=== PATIENT | male | born 1950 | race Two or more races ===

== ENCOUNTER → 2019-05-28 | Emergency (ER) | payer MEDICAID ==
[~2019-05-28] VITALS: Ht 297.2 cm; Wt 86.6 kg
[2019-05-28 08:00] VITALS: BP 157/79
--- NOTE | 2019-05-28 08:24 | NUR ---
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
--- NOTE | 2019-05-28 10:10 | NUR ---
Patient discharged to home in stable condition. Written and verbal after care instructions given. Patient verbalizes understanding of instruction.
== END | disposition home or self-care (01) ==
LOC: ER 08:00
DX: S01.01XA Laceration without foreign body of scalp, initial encounter (principal); Z85.05 Personal history of malignant neoplasm of liver; W01.0XXA Fall on same level from slipping, tripping and stumbling without subsequent striking against object, initial encounter; Y93.89 Activity, other specified; Y92.89 Other specified places as the place of occurrence of the external cause; Y99.8 Other external cause status
CPT/HCPCS: 12001; 70450; 73030; 99284; A6403

== ENCOUNTER 2019-06-24 21:32 | Emergency (ER) | payer MEDICAID ==
[~2019-06-24] VITALS: Ht 170.2 cm; Wt 81.6 kg
[2019-06-24] MEDS ORDERED: IBUPROFEN 400 MG TABLET PO ONE (22:30)
[2019-06-24] MEDS ORDERED: IBUPROFEN 400 MG TABLET ONE (22:32)
--- NOTE | 2019-06-24 22:33 | NUR ---
RADIOLOGY AT BEDSIDE FOR XRAYS
--- NOTE | 2019-06-24 23:20 | NUR ---
Patient discharged to home in stable condition. Written and verbal after care instructions given. Patient verbalizes understanding of instruction. ambulatory with a steady gait noted. pt daughter at bedside to take pt home.
[2019-06-24 23:22] VITALS: BP 117/78
== END 2019-06-24 23:22 | disposition home or self-care (01) ==
LOC: ER 21:34
DX: S93.491A Sprain of other ligament of right ankle, initial encounter (principal); S43.492A Other sprain of left shoulder joint, initial encounter; Z85.05 Personal history of malignant neoplasm of liver; W01.0XXA Fall on same level from slipping, tripping and stumbling without subsequent striking against object, initial encounter; Y93.89 Activity, other specified; Y92.89 Other specified places as the place of occurrence of the external cause; Y99.8 Other external cause status
CPT/HCPCS: 73030-TC; 73610-TC

== ENCOUNTER 2019-08-22 10:49 | Emergency (ER) | payer MEDICAID ==
[~2019-08-22] VITALS: Ht 172.7 cm; Wt 85.3 kg
--- NOTE | 2019-08-22 11:30 | NUR ---
patient came in to the er c/o right ankle pain and swelling s/p tripped and buckled. On room air, breathing evenly and unlabored kept comfortable, will continue to monitor accordingly.
[2019-08-22] MEDS ORDERED: MORPHINE SULFATE INJ 2 MG/ML DISP.SYRIN ONE (11:41)
[2019-08-22 11:50] LABS: BASOPHILS # (AUTO) 0.1 /CMM (0.0-0.2); BASOPHILS % (AUTO) 1.7 % (0.0-2.0); EOSINOPHILS % (AUTO) 0.1 % (0.0-6.0); HEMATOCRIT 29 % (39-51); HEMOGLOBIN 9.8 g/dL (13.5-17.5); LYMPHOCYTES # (AUTO) 1.5 /CMM (0.8-4.8); LYMPHOCYTES % (AUTO) 30.1 % (20.0-44.0); MEAN CORPUSCULAR HGB CONC 33 g/dl (31.0-36.0); MEAN CORPUSCULAR VOLUME 97 fL (80-96); MONOCYTES # (AUTO) 0.7 /CMM (0.1-1.30); NEUTROPHILS # (AUTO) 2.6 /CMM (1.8-8.9); NEUTROPHILS % (AUTO) 53.1 % (43.0-81.0); PLATELET COUNT (AUTO) 144 /CMM (150-450); RED BLOOD CELL COUNT(AUTO) 3.03 MIL/uL (4.5-6.0)
[2019-08-22] MEDS: MORPHINE SULFATE INJ 2 MG/ML DISP.SYRIN IV ONE (11:55)
[2019-08-22 11:58] LABS: CALCIUM, SERUM 8.3 mg/dL (8.5-10.1); CREATININE 0.9 mg/dL (0.6-1.3); POTASSIUM 4.4 mmol/L (3.5-5.1)
[2019-08-22 12:03] LABS: ALBUMIN 2.5 g/dL (3.4-5.0); BILIRUBIN,DIRECT 0.6 mg/dL (0.0-0.2); BILIRUBIN,TOTAL 1.5 mg/dL (0.2-1.0); TOTAL PROTEIN, SERUM 8.8 g/dL (6.4-8.2)
[2019-08-22 13:34] VITALS: BP 144/61
--- NOTE | 2019-08-22 13:34 | NUR ---
Patient discharged to home in stable condition. Written and verbal after care instructions given. Patient verbalizes understanding of instruction.IV removed. Catheter intact and site benign. Pressure and 4x4 applied to site. No bleeding noted.
== END 2019-08-22 13:34 | disposition home or self-care (01) ==
LOC: ER 10:49
DX: S93.491A Sprain of other ligament of right ankle, initial encounter (principal); Z85.05 Personal history of malignant neoplasm of liver; W01.0XXA Fall on same level from slipping, tripping and stumbling without subsequent striking against object, initial encounter; Y93.89 Activity, other specified; Y92.89 Other specified places as the place of occurrence of the external cause; Y99.8 Other external cause status
CPT/HCPCS: 36415; 73610; 80048; 80076; 85025; 85730; 96374; 99284; J2270

== ENCOUNTER 2019-09-14 16:48 | Inpatient (IN) | payer MEDICAID ==
[~2019-09-14] VITALS: Ht 170.2 cm; Wt 82.1 kg
--- NOTE | 2019-09-14 17:28 | NUR ---
PT BIB FAMILY TO ED BED 10 C/O RLQ ABDOMINAL PAIN W/ NAUSEA SINCE YESTERDAY. DENIES VOMITING PT STATES PAIN IS WORST AFTER LUNCH. PLACED ON MONITOR. VSS. AWAITING MD MOSCOSO.
[2019-09-14] MEDS ORDERED: ONDANSETRON HCL/PF 4 MG/2 ML VIAL IVP ONE (17:30)
[2019-09-14] MEDS ORDERED: MORPHINE SULFATE INJ 2 MG/ML DISP.SYRIN IV ONE ×3 (17:30→20:00)
--- NOTE | 2019-09-14 17:30 | NUR ---
DR HUANG AT BEDSIDE FOR EVAL.
--- NOTE | 2019-09-14 17:43 | NUR ---
IV LINE STARTED BLOOD DRAWN AND SENT TO LAB.
[2019-09-14] MEDS ORDERED: ONDANSETRON HCL/PF 4 MG/2 ML VIAL ONE (17:45)
[2019-09-14] MEDS ORDERED: MORPHINE SULFATE INJ 4 MG/ML DISP.SYRIN ONE (17:45)
[2019-09-14 17:48] LABS: BASOPHILS % (AUTO) 1.1 % (0.0-2.0); EOSINOPHILS % (AUTO) 1.4 % (0.0-6.0); HEMATOCRIT 26 % (39-51); HEMOGLOBIN 8.7 g/dL (13.5-17.5); LYMPHOCYTES # (AUTO) 1.8 /CMM (0.8-4.8); LYMPHOCYTES % (AUTO) 56.3 % (20.0-44.0); MEAN CORPUSCULAR HGB CONC 34 g/dl (31.0-36.0); MEAN CORPUSCULAR VOLUME 96 fL (80-96); MONOCYTES # (AUTO) 0.4 /CMM (0.1-1.30); MONOCYTES % (AUTO) 11.7 % (2.0-12.0); NEUTROPHILS # (AUTO) 0.9 /CMM (1.8-8.9); NEUTROPHILS % (AUTO) 29.5 % (43.0-81.0); PLATELET COUNT (AUTO) 267 /CMM (150-450); WHITE BLOOD COUNT (AUTO) 3.1 K/uL (4.3-11.0)
[2019-09-14 17:58] LABS: CALCIUM, SERUM 8.3 mg/dL (8.5-10.1); CARBON DIOXIDE 27 mmol/L (21-32); CHLORIDE 105 mmol/L (98-107); CREATININE 0.8 mg/dL (0.6-1.3); GLUCOSE 82 mg/dL (74-106); POTASSIUM 4.3 mmol/L (3.5-5.1); SODIUM SERUM 137 mmol/L (136-145); UREA NITROGEN, BLOOD 11 mg/dL (7-18)
[2019-09-14 18:04] LABS: ALANINE AMINOTRANSFERASE 29 U/L (12-78); ALKALINE PHOSPHATASE 508 U/L (46-116); ASPARTATE AMINOTRANSFERASE 63 U/L (15-37); BILIRUBIN,DIRECT 0.5 mg/dL (0.0-0.2); BILIRUBIN,TOTAL 0.9 mg/dL (0.2-1.0); LIPASE 151 U/L (73-393); TOTAL PROTEIN, SERUM 9.2 g/dL (6.4-8.2)
--- NOTE | 2019-09-14 18:09 | NUR ---
PT TO RADIOLOGY FOR ABDOMINAL CT SCAN VIA [facility].
[2019-09-14] MEDS ORDERED: IV NS 0.9% 250 ML IV ONE (18:17)
[2019-09-14] MEDS ORDERED: CT SWABBABLE VALVE TRANS SET 1 EA INFUS.SET MC ONE (18:17)
[2019-09-14] MEDS ORDERED: IOHEXOL-300 100 ML VIAL IV ONE (18:17)
[2019-09-14 18:32] LABS: APPEARANCE,URINE Clear (CLEAR); BILIRUBIN,URINE Negative (NEGATIVE); BLOOD, URINE Negative Ery/uL (NEGATIVE); COLOR,URINE Yellow (YELLOW); KETONES,URINE Negative (NEGATIVE); LEUKOCYTE ESTERASE ,URINE Negative (NEGATIVE); NITRITE, URINE Negative (NEGATIVE); PH,URINE 8.5 (5.0-8.0); PROTEIN,URINE Negative (NEGATIVE); UGLUCOSE Negative (NEGATIVE)
[2019-09-14 18:50] LABS: BACTERIA,URINE Few /HPF (None Seen); RBC,URINE 0-2 /HPF (0-2); SQUAMOUS EPITHELIAL CELL,UR Few /HPF (None Seen); WBC,URINE 0-2 /HPF (0-3)
[2019-09-14] MEDS ORDERED: MORPHINE SULFATE INJ 2 MG/ML DISP.SYRIN ONE ×2 (19:08→20:23)
--- NOTE | 2019-09-14 19:17 | NUR ---
REPORT GIVEN TO LAURA MCCLURE FOR INDERJIT.
--- NOTE | 2019-09-14 19:48 | NUR ---
CALLED [facility]. RADIATOR MECHANIC WAS PAGED
[2019-09-14] MEDS ORDERED: IV NS 0.9% 1,000 ML BAG IV ONE (20:00)
[2019-09-14] MEDS ORDERED: PIPERACILLIN /TAZOBACTAM 3.375 G in IV D5W 50 ML IV ONE (20:00)
[2019-09-14] MEDS ORDERED: PIPERACILLIN /TAZOBACTAM 3.375 G VIAL IV ONE (20:23)
--- NOTE | 2019-09-14 21:20 | NUR ---
REPORT GIVEN TO KAMI JURADO FOR INDERJIT.
--- NOTE | 2019-09-14 21:35 | NUR ---
MS/RN NEW ADMISSION RN NOTES RECEIVED PATIENT ON A GURNEY FROM ER ACCOMPANIED BY SON. PATIENT IS ALERT, ORIENTED, ESTONIAN SPEAKING BUT ABLE TO UNDERSTAND AND SPEAK WOLOF, RESPIRATIONS EVEN AND UNLABORED, SKIN WARM TO TOUCH, WITH PAIN IN ABDOMEN, DX OF COLLITIS AND PARTIAL OBSTRUCTION WITH ADMITTING MD ARELLANO. ROOM ORIENTATION PROVIDED, BELONGINGS CHECK, MEDICATION HOME WAS ASKED AND REPORTED NO MEDICATION BEEN TAKING AT THIS TIME EXCEPT TYLENOL REPORTED. BED LOCKED, ABLE TO AMBULATE WITH WEAKNESS AND SWOLLEN ON RIGHT FOOT. USES WALKER AND FOOT BOOT. SKIN CHECK, OBSERVE SURGICAL INCISSION IN MID ABDOMEN WITH DRESSING. WILL CONTINUE TO MONITOR AND PROVDE CARE.
[2019-09-14 21:36] VITALS: BP 146/83
--- NOTE | 2019-09-14 21:36 | NUR ---
PT TRANSPORTED TO UNIT ON [place] WITH EMT AT BEDSIDE. PT STABLE FOR TRANSPORT.
[2019-09-14] MEDS ORDERED: Z GUARD REMEDY 2 OZ OINT TP PRN (22:00)
[2019-09-14] MEDS ORDERED: ACETAMINOPHEN 325 MG TABLET PO PRN (22:00)
[2019-09-14] MEDS ORDERED: MAGNESIUM HYDROXIDE 30 ML UDC PO PRN (22:00)
[2019-09-14] MEDS ORDERED: ZOLPIDEM TARTRATE 5 MG TABLET PO PRN (22:00)
[2019-09-14] MEDS ORDERED: MAG HYDROX/AL HYDROX/SIMETH 30 ML UDC PO PRN (22:00)
[2019-09-14] MEDS ORDERED: HYDROCODONE/APAP 5/325MG 1 EACH TABLET PO PRN (22:00)
[2019-09-14] MEDS: MORPHINE SULFATE INJ 4 MG/ML DISP.SYRIN IV PRN (22:48)
--- NOTE | 2019-09-14 22:49 | NUR ---
MS/RN NOTES MORPHINE 4 MG/1ML REQUESTED BY PATIENT FOR SEVERE PAIN. BLOOD PRESSURE CHECK SBP ABOVE 140. WILL MONITOR FOR RELIEF.
[2019-09-14] MEDS: IV D5/0.45 NACL 1,000 ML IV PRN (22:57)
[2019-09-14] MEDS: ENOXAPARIN SODIUM 40 MG/0.4 ML DISP.SYRIN SQ SCH (23:23)
[2019-09-15] MEDS ORDERED: PIPERACILLIN /TAZOBACTAM 3.375 G VIAL IV ONE (02:26)
[2019-09-15] MEDS ORDERED: ZOSYN IVPB 3.375 G in IV D5W 50ml IV ONE (03:00)
[2019-09-15] MEDS: MORPHINE SULFATE INJ 4 MG/ML DISP.SYRIN IV PRN ×4 (06:22→22:36)
[2019-09-15 06:42] LABS: BASOPHILS % (AUTO) 0.8 % (0.0-2.0); EOSINOPHILS % (AUTO) 2.4 % (0.0-6.0); HEMATOCRIT 27 % (39-51); HEMOGLOBIN 8.8 g/dL (13.5-17.5); LYMPHOCYTES # (AUTO) 1.4 /CMM (0.8-4.8); LYMPHOCYTES % (AUTO) 54.8 % (20.0-44.0); MEAN CORPUSCULAR HGB CONC 33 g/dl (31.0-36.0); MEAN CORPUSCULAR VOLUME 96 fL (80-96); MONOCYTES # (AUTO) 0.3 /CMM (0.1-1.30); MONOCYTES % (AUTO) 11.9 % (2.0-12.0); NEUTROPHILS # (AUTO) 0.8 /CMM (1.8-8.9); NEUTROPHILS % (AUTO) 30.1 % (43.0-81.0); PLATELET COUNT (AUTO) 248 /CMM (150-450); RED BLOOD CELL COUNT(AUTO) 2.76 MIL/uL (4.5-6.0); WHITE BLOOD COUNT (AUTO) 2.5 K/uL (4.3-11.0)
--- NOTE | 2019-09-15 07:00 | NUR ---
MS/RN CLOSING NOTES ENDORSED TO AM RN FOR INDERJIT
[2019-09-15 07:19] LABS: CALCIUM, SERUM 7.7 mg/dL (8.5-10.1); CREATININE 0.7 mg/dL (0.6-1.3); POTASSIUM 3.5 mmol/L (3.5-5.1)
--- NOTE | 2019-09-15 07:50 | NUR ---
MS RN OPENING NOTES Received Patient awake and resting in bed. A/O x 4. Patient in stable condition. Breathing even and unlabored on room air with no respiratory distress. Denies pain. No signs and symptoms of pain. 20g PIV on RAC clean, intact, patent and flushing well with D51/2NS infusing at 125ml/hr. NPO precautions in place. Safety precautions in place. Bed locked and set to lowest position with side rails x 2 up. All needs rendered at this time. Call light within reach. Will continue to monitor.
[2019-09-15 08:00] VITALS: BP 126/73
[2019-09-15] MEDS: PANTOPRAZOLE 40 MG VIAL IV SCH (08:32)
[2019-09-15] MEDS: PIPERACILLIN /TAZOBACTAM 3.375 G in IV D5W 100 ML IV SCH ×2 (12:03→20:48)
--- NOTE | 2019-09-15 12:26 | NUR ---
MS RN NOTES Obtained consent for "XRay Small Bowel Follow Through" at this time. Explained risks and benefits of procedure. Patient agreed. Consent placed in chart. Patient in stable condition. Will continue to monitor.
--- NOTE | 2019-09-15 13:04 | NUR ---
MS RN NOTES Inserted 22g PIV on Left Hand clean, intact, patent and flushing well. Patient tolerated well. Patient in stable condition. Will continue to monitor.
[2019-09-15 14:14] LABS: THYROID STIMULATING HORMONE 3.205 uIU/mL (0.358-3.74)
[2019-09-15] MEDS ORDERED: IOHEXOL-350 100 ML VIAL IV ONE (14:26)
[2019-09-15] MEDS ORDERED: IV NS 0.9% 250 ML IV ONE (14:26)
[2019-09-15] MEDS ORDERED: CT SWABBABLE VALVE TRANS SET 1 EA INFUS.SET MC ONE (14:26)
--- NOTE | 2019-09-15 14:51 | NUR ---
MS RN NOTES Patient taken to radiology at this time. Patient in stable condition.
--- NOTE | 2019-09-15 15:43 | NUR ---
MS RN NOTES Patient returned from radiology at this time. Patient in stable condition. Will continue to monitor.
[2019-09-15] MEDS ORDERED: DIATR MEGLU/DIATRIZOATE SODIUM 120 ML BOTTLE (GASTROGRAPHIN) ONE (15:50)
[2019-09-15 15:56] VITALS: BP 139/79
[2019-09-15] MEDS: ACETYLCYSTEINE 10% 3,000 MG/30 ML VIAL PO SCH ×2 (16:41→21:00)
--- NOTE | 2019-09-15 18:54 | NUR ---
MS RN CLOSING NOTES Patient awake and resting in bed. A/O x 4. Patient in stable condition. Breathing even and unlabored on room air with no respiratory distress. Patient stated improved pain management. Administered Morphine 4mg IVP at 1745. 20g PIV on RAC clean, intact, patent and flushing well. 22g PIV on left hand clean, intact, patent and flushing well with D51/2NS infusing at 125ml/hr. Safety precautions in place. Bed locked and set to lowest position with side rails x 2 up. All needs rendered at this time. Family at bedside. Call light within reach. Will endorse plan of care to oncoming shift.
--- NOTE | 2019-09-15 18:55 | NUR ---
MS RN NOTES Obtained consent for "Computed Tomography of Abdomen with Contrast" at this time. Explained risks and benefits. Patient agreed. Patient in stable condition. Family at bedside.
--- NOTE | 2019-09-15 19:54 | NUR ---
MS RN NOTES PATIENT RECEIVED IN BED RESTING, LAYING COMFORTABLY WITH FAMILY AT BEDSIDE. ALERT AND ORIENTED X 4. PATIENT ON ROOM AIR WITH NO RESPIRATORY DISTRESS PRESENT, WITH EVEN NON-LABORED BREATHING. PATIENT SKIN CLEAN AND DRY. ABDOMINAL LESION INTACT WITH NO SIGNS OF DRAINAGE. IV ACCESS IN PLACE, INTACT, AND PATENT RUNNING 125mL/hr, of D5 1/2 NS. PATIENT COMPLAINS OF RIGHT ABDOMINAL PAIN, PROVIDED COMFORT MEASURES TO PATIENT, AND GAVE PATIENT WARM BLANKET. URINAL AT BEDSIDE WITH CLEAR, YELLOW URINE OUTPUT. SAFETY PRECAUTIONS IN PLACE WITH BED LOCKED, BED ALARM ON, BILATERAL SIDE RAILS UP, BED IN THE LOWEST POSITION, AND CALL LIGHT WITHIN EASY REACH OF PATIENT. WILL CONTINUE TO MONITOR.
[2019-09-15 20:00] VITALS: BP 131/76
[2019-09-15] MEDS: ENOXAPARIN SODIUM 40 MG/0.4 ML DISP.SYRIN SQ SCH (21:19)
--- NOTE | 2019-09-15 22:36 | NUR ---
MS RN NOTES PATIENT STATES OF HAVING ABDOMINAL PAIN. PATIENT STATES PAIN LEVEL OF 9/10. ADMINISTERED MORPHINE IV 4mg/mL. VITAL SIGNS WNL, BP: 131/76 PULSE:62, RESPIRATORY RATE:18 AND O2:95%. WILL CONTINUE TO MONITOR PATIENT AND REASSESS PAIN LEVEL.
[2019-09-15] MEDS: ONDANSETRON HCL/PF 4 MG/2 ML VIAL IVP PRN (22:44)
[2019-09-16] MEDS: MORPHINE SULFATE INJ 4 MG/ML DISP.SYRIN IV PRN ×3 (03:29→21:52)
[2019-09-16] MEDS: PIPERACILLIN /TAZOBACTAM 3.375 G in IV D5W 100 ML IV SCH ×3 (04:25→20:45)
[2019-09-16] MEDS: ONDANSETRON HCL/PF 4 MG/2 ML VIAL IVP PRN (05:10)
--- NOTE | 2019-09-16 06:00 | NUR ---
MS RN NOTES PATIENT IN BED RESTING. ALERT AND ORIENTED X 4. PATIENT ON ROOM AIR, WITH NO RESPIRATORY DISTRESS PRESENT, AND WITH EVEN NON-LABORED BREATHING. PATIENT SKIN KEPT CLEAN AND DRY. ABDOMINAL DRESSING CHANGED, NO DRAINAGE PRESENT ON SITE. IV ACCESS INTACT AND PATENT, RIGHT AC, 20 GAUGE AND LEFT HAND 22 GAUGE. PATIENT PRESENTS NO SIGNS OF NAUSEA/VOMITING AT THIS TIME. PATIENT PRESENTS NO PAIN OR DISCOMFORT AT THIS TIME, PROVIDED COMFORT MEASURES TO PATIENT. SAFETY PRECAUTIONS IN PLACE WITH BED IN THE LOWEST POSITION, BED LOCKED, BED ALARM ON, BILATERAL SIDE RAILS UP, AND CALL LIGHT WITHIN EASY REACH. WILL ENDORSE INDERJIT TO UPCOMING AM NURSE.
--- NOTE | 2019-09-16 07:32 | NUR ---
MS RN OPENING NOTES RECEIVED PATIENT IN BED, A/O X4. PATIENT ON ROOM AIR BREATHING EVENLY WITH NO RESPIRATORY DISTRESS AT THIS TIME. RAC GAUGE # 20 SL PRESENT AND INTACT. L HAND GAUGE # 22 PRESENT AND INFUSING D5 1/2 NS AT THIS TIME. SAFETY PRECAUTIONS IN PLACE: BED IN LOW POSITION AND LOCKED, RAILS UP X2, CALL LIGHT WITHIN REACH. WILL CONTINUE TO MONITOR PATIENT.
[2019-09-16 08:00] VITALS: BP 114/70
[2019-09-16 08:11] LABS: IMMUNOGLOBULIN A, SERUM 1580 mg/dL (61-437); IMMUNOGLOBULIN G, SERUM 4118 mg/dL (700-1600); IMMUNOGLOBULIN M, SERUM 158 mg/dL (20-172)
[2019-09-16] MEDS: PANTOPRAZOLE 40 MG VIAL IV SCH (08:23)
[2019-09-16] MEDS: ACETYLCYSTEINE 10% 3,000 MG/30 ML VIAL PO SCH ×2 (11:39→20:46)
--- NOTE | 2019-09-16 15:33 | NUR ---
MS RN NOTES PATIENT DEVELOPED SEVERE ABDOMINAL PAIN (03/03). PATIENT ASKED FOR PAIN MEDICATION. PRN MORPHINE ADMINISTERED. WILL CONTINUE TO MONITOR PATIENT.
[2019-09-16] MEDS: IV D5/0.45 NACL 1,000 ML IV PRN (16:38)
--- NOTE | 2019-09-16 18:47 | NUR ---
MS RN CLOSING NOTES PATIENT IN BED, AWAKE, A/O X4. PATIENT ON ROOM AIR BREATHING EVENLY WITH NO RESPIRATORY DISTRESS THROUGHOUT THE DAY. RAC GAUGE # 20 SL PRESENT AND INTACT. L HAND GAUGE # 22 PRESENT AND INFUSING D5 1/2 NS AT 125 MLS/HR. ALL NEEDS ATTENDED TOO DURING THE DAY. SAFETY PRECAUTIONS IN PLACE: BED IN LOW POSITION AND LOCKED, RAILS UP X2, CALL LIGHT WITHIN REACH. WILL ENDORSE TO CONTROL CLERK HEAD NURSE.
--- NOTE | 2019-09-16 19:37 | NUR ---
MS RN NOTES PATIENT RECEIVED IN BED, RESTING AND LAYING COMFORTABLY. PATIENT ALERT AND ORIENTED X 4. ON ROOM AIR, WITH NO SIGNS OF RESPIRATORY DISTRESS PRESENT, NO SIGNS OF SOB, AND WITH EVEN NON-LABORED BREATHING. PATIENT SKIN DRY AND INTACT, DRESSING ON ABDOMEN CLEAN AND DRY, WITH NO SIGNS OF DRAINAGE. IV ACCESS IN PLACE, INTACT AND PATENT; RAC SL 20 GAUGE, L HAND 22 GAUGE RUNNING D5 1/2 NS, AT 125 ml/hr. PATIENT PRESENTS NO SIGNS OF DISCOMFORT OR PAIN, PROVIDED COMFORT MEASURES TO PATIENT. RIGHT FOOT BRACE/BOOT AT BEDSIDE. SAFETY PRECAUTIONS IN PLACE WITH BED IN THE LOWEST POSITION, BED LOCKED, BED ALARM ON, BILATERAL SIDE RAILS UP, AND CALL LIGHT WITHIN EASY REACH. WILL CONTINUE TO MONITOR PATIENT.
[2019-09-16 20:00] VITALS: BP 112/64
[2019-09-16] MEDS: ENOXAPARIN SODIUM 40 MG/0.4 ML DISP.SYRIN SQ SCH (21:48)
--- NOTE | 2019-09-16 21:52 | NUR ---
MS RN NOTES PATIENT COMPLAINS OF RIGHT ABDOMINAL PAIN, ON PAIN SCALE PATIENT STATES PAIN LEVEL OF 9/10. VITAL SIGNS ARE WNL, BP:112/64 PULSE:62 RESPIRATORY RATE:18. MORPHINE 4mg/1ml given at 2152. WILL REASSESS PATIENT AND CONTINUE TO MONITOR PATIENT.
[2019-09-17] MEDS: PIPERACILLIN /TAZOBACTAM 3.375 G in IV D5W 100 ML IV SCH ×3 (04:40→20:41)
[2019-09-17] MEDS: IV D5/0.45 NACL 1,000 ML IV PRN ×2 (04:52→20:39)
--- NOTE | 2019-09-17 06:20 | NUR ---
MS RN NOTES PATIENT IN BED SLEEPING, EASILY AWAKEN BY NAME AND LIGHT TOUCH, ALERT AND ORIENTED X 4. PATIENT ON ROOM AIR NO SIGNS OF RESPIRATORY DISTRESS PRESENT, NO SIGNS OF SOB, AND WITH EVEN NON-LABORED BREATHING. PATIENT SKIN KEPT CLEAN AND DRY. ABDOMINAL SITE KEPT CLEAN AND DRY WITH NO DRAINAGE PRESENT. NO NEW SKIN BREAKDOWN PRESENT. IV ACCESS INTACT, PATENT AND IN PLACE WITH NO S/S OF INFILTRATION. ALL PATIENT'S NEEDS MET AND PROVIDED COMFORT MEASURES TO PATIENT. SAFETY PRECAUTIONS IN PLACE WITH BED IN THE LOWEST POSITION, BILATERAL SIDE RAILS UP, BED LOCKED, AND CALL LIGHT WITHIN EASY REACH, WILL ENDORSE INDERJIT TO UPCOMING AM NURSE.
--- NOTE | 2019-09-17 07:17 | NUR ---
MS RN OPENING NOTES RECEIVED PATIENT IN BED, AWAKE, A/O X4. PATIENT ON ROOM AIR BREATHING EVENLY WITH NO RESPIRATORY DISTRESS AT THIS TIME. PATIENTS DENIES PAIN AT THE MOMENT. RAC GAUGE # 20 SL PRESENT AND INTACT AND FLUSHING WELL. L HAND GAUGE # 22 PRESENT AND INFUSING D5 1/2 NS AT THIS TIME. SAFETY PRECAUTIONS IN PLACE: BED IN LOW POSITION AND LOCKED, RAILS UP X2, CALL LIGHT WITHIN REACH. WILL CONTINUE TO MONITOR PATIENT.
[2019-09-17 07:26] LABS: BASOPHILS % (AUTO) 0.7 % (0.0-2.0); HEMATOCRIT 25 % (39-51); HEMOGLOBIN 8.2 g/dL (13.5-17.5); LYMPHOCYTES # (AUTO) 1.3 /CMM (0.8-4.8); LYMPHOCYTES % (AUTO) 50.6 % (20.0-44.0); MEAN CORPUSCULAR HGB CONC 33 g/dl (31.0-36.0); MEAN CORPUSCULAR VOLUME 95 fL (80-96); MONOCYTES # (AUTO) 0.3 /CMM (0.1-1.30); MONOCYTES % (AUTO) 12.3 % (2.0-12.0); NEUTROPHILS # (AUTO) 0.9 /CMM (1.8-8.9); NEUTROPHILS % (AUTO) 34.4 % (43.0-81.0); PLATELET COUNT (AUTO) 224 /CMM (150-450); WHITE BLOOD COUNT (AUTO) 2.5 K/uL (4.3-11.0)
[2019-09-17 08:00] VITALS: BP 101/58
[2019-09-17 08:07] LABS: CALCIUM, SERUM 7.6 mg/dL (8.5-10.1); CREATININE 0.9 mg/dL (0.6-1.3); MAGNESIUM 2.1 mg/dL (1.8-2.4); PHOSPHORUS 2.7 mg/dL (2.5-4.9); POTASSIUM 3.3 mmol/L (3.5-5.1)
[2019-09-17] MEDS: PANTOPRAZOLE 40 MG VIAL IV SCH (08:08)
[2019-09-17] MEDS: FERROUS SULFATE (325 MG) 325 MG/TAB TABLET PO SCH ×2 (08:08→16:38)
[2019-09-17] MEDS ORDERED: POTASSIUM CHLORIDE 20 MEQ POWDER PACKET NG SCH (10:30)
[2019-09-17 11:11] LABS: *SPE A/G RATIO 0.3 (0.7-1.7); *SPE ALBUMIN 2.2 g/dL (2.9-4.4); *SPE ALPHA-1-GLOBULIN 0.3 g/dL (0.0-0.4); *SPE ALPHA-2-GLOBULIN 0.8 g/dL (0.4-1.0); *SPE BETA GLOBULIN 1.8 g/dL (0.7-1.3); *SPE GLOBULIN, TOTAL 6.4 g/dL (2.2-3.9); *SPE M-SPIKE Not Observed g/dL (Not Observed); *SPEGAMMA GLOBULIN 3.5 g/dL (0.4-1.8)
[2019-09-17 12:24] LABS: OCCULT BLOOD STOOL NEGATIVE (NEGATIVE)
[2019-09-17] MEDS: MORPHINE SULFATE INJ 4 MG/ML DISP.SYRIN IV PRN ×3 (15:02→23:33)
[2019-09-17 16:00] VITALS: BP 148/89
--- NOTE | 2019-09-17 18:41 | NUR ---
MS RN CLOSING NOTES PATIENT IN BED, AWAKE, A/O X4. FAMILY AT THE BEDSIDE. PATIENT ON ROOM AIR BREATHING EVENLY WITH NO RESPIRATORY DISTRESS AT THIS TIME. PATIENTS DENIES PAIN AT THE MOMENT. RAC GAUGE # 20 SL PRESENT AND INTACT AND FLUSHING WELL. L HAND GAUGE # 22 PRESENT AND INFUSING D5 1/2 NS AT 125 MLS/HR. ALL NEEDS ATTENDED TO THROUGHOUT THE DAY. SAFETY PRECAUTIONS IN PLACE: BED IN LOW POSITION AND LOCKED, RAILS UP X2, CALL LIGHT WITHIN REACH. WILL ENDORSE TO REHABILITATION LIAISON NURSE.
--- NOTE | 2019-09-17 19:35 | NUR ---
MSRN FULLY AWAKE, VISITORS AT BEDSIDE. PROVIDED PRIVACY
--- NOTE | 2019-09-17 19:40 | NUR ---
MSRN VERBALIZES RIGHT LOWER QUADRANT ABDOMINAL PAIN, MORPHINE 4 MG IVP ADMINISTERED ORDERED. BEDREST INSTRUCTED. PROVIDED URINAL. PRESENT IVF INFUSING WELL . REMINDED TO CALL STAFF FOR ANY ASSISTANCE OR DISCOMFORTS, HIGH FALL RISK. NO SOB V/S STABLE. CONTINUED.
[2019-09-17 20:00] VITALS: BP 130/70
[2019-09-17] MEDS: ENOXAPARIN SODIUM 40 MG/0.4 ML DISP.SYRIN SQ SCH (22:27)
--- NOTE | 2019-09-17 23:25 | NUR ---
MSRN RIGHT LOWER QUADRANT PAIN, MORPHINE 4 MG IVP ADMINISTERED. WENT BACK TO SLEEP. CLOSELY WATCED
--- NOTE | 2019-09-18 02:17 | NUR ---
MSRN 2030, FROM SCALE 8 DOWN TO LEVEL3 PAIN SCALE. NO OTHER NEEDS MADE.
[2019-09-18 03:06] LABS: CARBOHYDRATE AG 19-9 1 U/mL (0-35)
[2019-09-18] MEDS: MORPHINE SULFATE INJ 4 MG/ML DISP.SYRIN IV PRN ×2 (03:30→08:19)
[2019-09-18] MEDS: PIPERACILLIN /TAZOBACTAM 3.375 G in IV D5W 100 ML IV SCH ×2 (05:24→13:31)
[2019-09-18] MEDS: IV D5/0.45 NACL 1,000 ML IV PRN (06:17)
--- NOTE | 2019-09-18 06:40 | NUR ---
MSRN SLEPT WELL . KEPT COMFORTABLE. NO NEEDS FOR NOW.
[2019-09-18 08:00] VITALS: BP 131/78
--- NOTE | 2019-09-18 08:19 | NUR ---
MEDICATED FOR PAIN WITH MORPHINE.
--- NOTE | 2019-09-18 08:49 | NUR ---
GOOD EFFECT WITH PAIN MED.
[2019-09-18] MEDS: PANTOPRAZOLE 40 MG VIAL IV SCH (09:30)
[2019-09-18] MEDS: FERROUS SULFATE (325 MG) 325 MG/TAB TABLET PO SCH (09:30)
--- NOTE | 2019-09-18 15:45 | NUR ---
IN TO VISIT.
[2019-09-18 16:00] VITALS: BP 148/54
--- NOTE | 2019-09-18 16:43 | NUR ---
REFUSED DISCHARGE PHOTOS.
--- NOTE | 2019-09-18 16:45 | NUR ---
RENETTA CANCINO IN AND DC ORDER GIVEN. HEP LOCKS OUT,BELONGING SHEET SIGNED GIVEN ALL INSTRUCTIONS AND TAKEN TO LOBBY VIA W/C TO BE DC'D.AWARE OF ALL MD FOLLOW [employer].NO MEDS ORDERED FOR DC,CONFIRMED WITH [facility] DIAL NP.
== END 2019-09-18 16:35 | disposition home or self-care (01) | DRG 247 ==
LOC: ER 16:51 → MED 20:40
PROVIDERS: ADMIT Student in an Organized Health Care Education/Training Program; ATTEND Nurse Practitioner Acute Care
DX: K56.600 Partial intestinal obstruction, unspecified as to cause (principal); E43 Unspecified severe protein-calorie malnutrition; I81 Portal vein thrombosis; D61.811 Other drug-induced pancytopenia; I31.3 Pericardial effusion (noninflammatory); C22.0 Liver cell carcinoma; K83.8 Other specified diseases of biliary tract; K74.60 Unspecified cirrhosis of liver; Z90.49 Acquired absence of other specified parts of digestive tract; Z85.05 Personal history of malignant neoplasm of liver; Z87.891 Personal history of nicotine dependence; I70.0 Atherosclerosis of aorta; B19.20 Unspecified viral hepatitis C without hepatic coma; K52.9 Noninfective gastroenteritis and colitis, unspecified
CPT/HCPCS: 36415; 74160-TC; 74250-TC; 80048-TC; 80076-TC; 81000-TC; 82105; 82272-TC; 82378; 82728-TC; 82784; 83540-TC; 83690-TC; 83735-TC; 84100-TC; 84155; 84165; 84443-TC; 84484-TC; 85025-TC; 85730-TC; 86301; 86334; 86706; 86803; 87081-TC; 87340; C9113; G0378; J1650; J2270; J2405; J2543; J3490; J7030; J7042; J7050; J7060; Q9963; Q9967

== ENCOUNTER 2020-02-10 21:19 | Emergency (ER) | payer MEDICAID ==
[~2020-02-10] VITALS: Ht 162.6 cm; Wt 86.2 kg
--- NOTE | 2020-02-10 21:30 | NUR ---
PT'S LIP BLISTER IS BLEEDING AND PRESSURE APPLIED WITH GAUZE.
--- NOTE | 2020-02-10 21:32 | NUR ---
PT PRESENTED TO THE ER WITH A C/O BOTTOM LIP SORE THAT IS BLEEDING FOR 2 HRS. PT IS KOREAN SPEAKING ONLY. PT'S SON IS AT THE BEDSIDE. PT WAS TRIAGED AND TAKEN TO ROOM #3. PT'S MOUTH WAS SUCTIONED. PT WAS GIVEN WATER TO SWICH AND SPIT.
--- NOTE | 2020-02-10 21:34 | NUR ---
Sandoval GUEVARA, PAC IS AT THE BEDSIDE.
--- NOTE | 2020-02-10 21:36 | NUR ---
COTTON BALLS SOAKED WITH TRANEXAMIC ACID APPLIED TO PT'S LIP AND AREA COVERED WITH GAUZE AND PRESSURE APPLIED.
[2020-02-10] MEDS ORDERED: TRANEXAMIC ACID 1,000 MG/10 ML VIAL ONE (21:38)
[2020-02-10] MEDS ORDERED: TRANEXAMIC ACID 1,000 MG/10 ML VIAL IR ONE (22:00)
[2020-02-10] MEDS ORDERED: GELATIN SPONGE,ABSORBABLE 1 SPONGE SPONGE TP ONE ×2 (22:00→23:30)
--- NOTE | 2020-02-10 22:05 | NUR ---
GEL FOAM APPLIED TO WOUND AND COVERED WITH GAUZE. PRESSURE APPLIED.
--- NOTE | 2020-02-10 22:20 | NUR ---
MOARE GEL FOAM APPLIED WITH PRESSURE.
--- NOTE | 2020-02-10 22:20 | NUR ---
WOUND IS STILL BLEEDING. Sandoval GUEVARA PAC IS AT THE BEDSIDE EVALUATING THE WOUND.
[2020-02-10] MEDS ORDERED: LIDOCAINE 1%-EPI 1:100,000 20 ML VIAL ONE (22:21)
[2020-02-10] MEDS ORDERED: LIDOCAINE 1%-EPI 1:100,000 20 ML VIAL TP ONE (22:30)
--- NOTE | 2020-02-10 22:40 | NUR ---
WOUND IS STILL BLEEDING.
--- NOTE | 2020-02-10 22:53 | NUR ---
DR LARA IS AT THE BEDSIDE WITH Sandoval GUEVARA, PAC
--- NOTE | 2020-02-10 22:58 | NUR ---
WOUND IS BEING CAUTERIZED BY
--- NOTE | 2020-02-10 22:59 | NUR ---
DERMABOND IS BEING APPLIED BY Sandoval RAY
--- NOTE | 2020-02-10 23:23 | NUR ---
Patient discharged to home in stable condition. Written and verbal after care instructions given. Patient verbalizes understanding of instruction. PT'S SON IS DRIVING THE PT HOME. PT AMBULATED OUT WITH A STEADY GAIT.
[2020-02-10 23:24] VITALS: BP 142/87
== END 2020-02-10 23:24 | disposition home or self-care (01) ==
LOC: ER 21:20
DX: R23.3 Spontaneous ecchymoses (principal); K13.0 Diseases of lips
CPT/HCPCS: 99283; J3490